=== PATIENT | female | born 1980 | race Caucasian/White ===

== ENCOUNTER 2017-08-24 10:35 | Emergency (ER) | payer BC, SELFPAY | END 2017-08-24 11:59 | disposition home or self-care (01) | LOC: ERS 10:35 | DX: J10.1 Influenza due to other identified influenza virus with other respiratory manifestations (principal); I10 Essential (primary) hypertension; G43.909 Migraine, unspecified, not intractable, without status migrainosus; F17.210 Nicotine dependence, cigarettes, uncomplicated | CPT/HCPCS: 87081; 87430; 99406 ==

== ENCOUNTER 2018-02-09 02:59 | Emergency (ER) | payer BC, OTHER, SELFPAY ==
[2018-02-09 03:40] LABS: Bilirubin Negative (Negative); Blood, Urine Negative (Negative); Clarity CLOUDY (Clear); Glucose, Urine (Dipstick) Negative (Negative); Leukocyte Negative (Negative); Nitrite Negative (Negative); Protein, Urine (Dipstick) Negative (Neg-Trace); Specific Gravity, Urine 1.015 (1.002-1.036); Urobilinogen 0.2 mg/dL (0.2-1.0)
[2018-02-09 03:41] LABS: Pregnancy Test - Urine (BHCG) Negative (Negative); Pregu Control Background? CLEAR/WHITE (CLR/WHITE); Pregu Control Bar Appear? YES (CONTROL BAR)
[2018-02-09 03:42] LABS: Specific Gravity 1.015 (1.002-1.036)
[2018-02-09 05:06] LABS: Syphilis Antibody Nonreactive (Nonreactive); Syphilis Antibody Index 0.05 S/CO (<1.00 Non-Reactive)
[2018-02-09 05:18] LABS: HIV (1/2) Antibody/Antigen Non-Reactive (NonReactive); HIV 1/2 INDEX 0.07 S/CO (<1.00); Hep C IgG Ab Non-Reactive (NonReactive)
[2018-02-11 19:56] LABS: Chlamydia by PCR Not Detected (NotDetected); GC by PCR Not Detected (NotDetected)
== END 2018-02-09 04:26 | disposition home or self-care (01) ==
LOC: ERS 02:59
DX: N76.4 Abscess of vulva (principal); I10 Essential (primary) hypertension; G43.909 Migraine, unspecified, not intractable, without status migrainosus; F43.10 Post-traumatic stress disorder, unspecified; F17.210 Nicotine dependence, cigarettes, uncomplicated
CPT/HCPCS: 36415; 81003; 81025; 86780; 86803; 87389; 87480; 87491; 87510; 87529; 87591; 87660; 99283

== ENCOUNTER 2019-03-07 19:39 | Emergency (ER) | payer BC, SELFPAY ==
[2019-03-07] MEDS ORDERED: predniSONE 20 MG TAB ONE (20:22)
[2019-03-07] MEDS ORDERED: Albuterol Sulfate 2.5 mg/3 ml Neb ONE ×2 (20:28→21:09)
--- NOTE | 2019-03-07 20:48 | RAD ---
TWO VIEW CHEST: 03/07/19 HISTORY: Pneumonia, cough. Lungs are clear. No infiltrate identified. Heart and mediastinum unremarkable. IMPRESSION: No acute process. POS: [facility]
== END 2019-03-07 21:30 | disposition home or self-care (01) ==
LOC: ERS 19:39
DX: J20.9 Acute bronchitis, unspecified (principal); I10 Essential (primary) hypertension; G43.909 Migraine, unspecified, not intractable, without status migrainosus; F17.210 Nicotine dependence, cigarettes, uncomplicated; F41.9 Anxiety disorder, unspecified; Z79.899 Other long term (current) drug therapy
CPT/HCPCS: 71046; J7512; J7611; J7620

== ENCOUNTER 2019-04-22 20:17 | Emergency (ER) | payer BC, OTHER ==
[2019-04-22] MEDS ORDERED: Lorazepam 2 MG/ML VIAL ONE (20:28)
[2019-04-22] MEDS ORDERED: Nitroglycerin 0.4 MG TAB 1 EACH ONE (20:39)
--- NOTE | 2019-04-22 20:50 | RAD ---
EXAM: Portable chest PROVIDED CLINICAL HISTORY: Chest pain COMPARISON: 03/07/2019 FINDINGS: Cardiac and mediastinal silhouette is within normal limits. No focal consolidation, pleural fluid or pneumothorax evident. IMPRESSION: No evidence for an acute cardiopulmonary process.
[2019-04-22 21:15] LABS: #Basophils 0.1 thou/uL (0.0-0.2); #Eosinphils 0.1 thou/uL (0.0-0.7); #Lymphocytes 3.4 thou/uL (1.20-3.40); #Monocytes 0.7 thou/uL (0.11-0.59); #Neutrophils 9.8 thou/uL (1.40-6.50); %Eosinophils 0.8 % (0.0-10.0); %Lymphocytes 23.9 % (21.0-51.0); %Monocytes 4.9 % (0.0-10.0); %Neutrophils 69.3 % (42.0-75.0); Mean Corpuscular HGB CONC 31.9 g/dL (32.0-36.0); Mean Corpuscular Hemoglobin 31.4 pg (27.0-31.0); Mean Corpuscular Volume 98.4 fL (78.0-98.0); Mean Platelet Volume 8.6 fL (7.4-10.4); Platelet Count 254 thou/uL (130-400); RBC Distribution Width 16.2 % (11.5-14.5); Red Blood Cell (RBC) Count 3.82 mill/uL (4.20-5.40); White Blood Cell (WBC) Count 14.1 thou/uL (4.8-10.8)
[2019-04-22 21:31] LABS: ALT (SGPT) 13 U/L (8-55); AST (SGOT) 18 U/L (5-34); Albumin 3.9 g/dL (3.5-5.0); Alkaline Phosphatase 49 U/L (40-150); Anion Gap 14 mmol/L (10-20); BUN (Urea Nitrogen) 16 mg/dL (7.0-18.7); Bilirubin, Total 0.2 mg/dL (0.2-1.2); CK (CPK) 215 U/L (29-168); Calc. Creatinine Clearance 0 mL/min (70-130); Calcium 8.9 mg/dL (7.8-10.44); Carbon Dioxide 22 mmol/L (22-29); Chloride 105 mmol/L (98-107); Estimated GFR-MDRD 83; Globulin 2.2 g/dL (2.4-3.5); Glucose 115 mg/dL (70-105); Lipase 24 U/L (8-78); Potassium 3.2 mmol/L (3.5-5.1); Protein, Total 6.1 g/dL (6.0-8.3); Sodium 138 mmol/L (136-145)
== END 2019-04-22 23:13 | disposition home or self-care (01) ==
LOC: ERS 20:17
DX: R07.9 Chest pain, unspecified (principal); F41.9 Anxiety disorder, unspecified; F31.9 Bipolar disorder, unspecified; F43.10 Post-traumatic stress disorder, unspecified; F90.9 Attention-deficit hyperactivity disorder, unspecified type; F17.210 Nicotine dependence, cigarettes, uncomplicated; Z79.51 Long term (current) use of inhaled steroids; Z79.899 Other long term (current) drug therapy
CPT/HCPCS: 36415; 71045; 80053; 82550; 83690; 83880; 84484; 85025; 85379; 93005; 94760; 96374; J2060

== ENCOUNTER 2019-09-09 14:05 | Outpatient (CLI) | payer BC ==
[2019-09-09 17:11] LABS: Hemoglobin 10.9 g/dL (12.0-16.0); Mean Corpuscular HGB CONC 31.6 g/dL (32.0-36.0); Mean Corpuscular Hemoglobin 29.3 pg (27.0-31.0); Mean Corpuscular Volume 92.7 fL (78.0-98.0); Mean Platelet Volume 8.8 fL (7.4-10.4); Platelet Count 292 thou/uL (130-400); RBC Distribution Width 14.7 % (11.5-14.5); Red Blood Cell (RBC) Count 3.73 mill/uL (4.20-5.40); White Blood Cell (WBC) Count 13.6 thou/uL (4.8-10.8)
[2019-09-09 17:24] LABS: BHCG - Serum Negative (NEGATIVE); Pregs Control Background? CLEAR/WHITE (CLR/WHITE); Pregs Control Bar Appear? YES (CONTROL BAR)
[2019-09-09 17:41] LABS: Anion Gap 8 mmol/L (10-20); BUN (Urea Nitrogen) 16 mg/dL (7.0-18.7); Calc. Creatinine Clearance 0 mL/min (70-130); Calcium 8.9 mg/dL (7.8-10.44); Carbon Dioxide 28 mmol/L (22-29); Chloride 107 mmol/L (98-107); Estimated GFR-MDRD 79; Glucose 99 mg/dL (70-105); Potassium 3.9 mmol/L (3.5-5.1); Sodium 139 mmol/L (136-145)
== END 2019-09-09 14:06 | disposition home or self-care (01) ==
LOC: LABBT 14:05
PROVIDERS: ATTEND Obstetrics & Gynecology
DX: Z01.812 Encounter for preprocedural laboratory examination (principal); D25.9 Leiomyoma of uterus, unspecified
CPT/HCPCS: 80048; 84703; 85027; 86850; 86900; 86901; 93005; 93010

== ENCOUNTER 2019-09-10 10:42 | Day surgery (SDC) | payer BC ==
--- NOTE | 2019-09-09 13:29 | HP ---
DATE OF SURGERY: She is scheduled for surgery on 09/10/2019. HISTORY OF PRESENT ILLNESS: Ms. Landeros is a 39-year-old white female, G2, P2, prior section x1, who has been having increasingly heavy menstrual bleeding. She describes her bleeding with large clots and saturation of a tampon within an hour. She has had progressive increase in the bleeding over the past year. She has tried nonsteroidals for this with no improvement. She is a half pack per day smoker and therefore, oral contraceptives are not recommended in her therapy. Due to the heavy bleeding, she has underwent a transvaginal ultrasound, which showed her uterus to measure 9.9 x 5.2 cm with two uterine fibroids located in the submucosal region. They measured 2.5 x 2.4 cm x2. They do noted to encroach the cavity of the uterus. PAST MEDICAL HISTORY: Significant for bipolar and ADHD. She is also hypertensive and also has anxiety and post-traumatic stress disorder. PAST SURGICAL HISTORY: As noted section. SOCIAL HISTORY: Half pack per day smoker. No illicit drug use or excessive alcohol intake. CURRENT MEDICATION: 1. Bisoprolol 10 mg - hydrochlorothiazide 6.25 mg daily. 2. Citalopram 20 mg tablet daily. 3. Lamotrigine 100 mg tablet b.i.d. 4. Vyvanse 60 mg tablet daily. FAMILY HISTORY: Noncontributory. 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 She has a control method is tubal ligation. PHYSICAL EXAMINATION: VITAL SIGNS: On exam, her height is 5 feet, weight 191 pounds with a BMI of 37.3. Blood pressure 112/82, pulse 62 and regular, respiratory rate 18, and O2 saturation on room air is 97%. HEENT: Within normal limits. NECK: Supple. No thyromegaly. CHEST: Clear to auscultation. HEART: Regular rate and rhythm. S1 and S2 heart sounds. No murmurs, rubs, or gallops. ABDOMEN: Soft and nontender. Well-healed Pfannenstiel incisional scar with no evidence of hernias appreciated. No palpable masses. PELVIC: External genitalia, there was no lesions. The vagina had no abnormal findings. There was no mass or tenderness in the vaginal area. No excessive cystocele or rectocele noted. Cervix had no visual lesions. It is normal in appearance. No cervical motion tenderness. The uterus was enlarged approximately a 10-week size. There were no adnexal masses or tenderness. Endometrial biopsy was performed and her uterus sounded to 9 cm. The endometrial biopsy pathology showed benign findings. ASSESSMENT AND PLAN: This is a 39-year-old white female, G2, P2, prior section x1, with tubal ligation with menorrhagia. She has noted two submucosal fibroids of the uterus noted on transvaginal ultrasound. She is not an oral contraceptive candidate due to greater than age 34 and smoking history. She desires definitive surgical therapy. She is scheduled for a robotic total laparoscopic hysterectomy with bilateral salpingectomy and this is set for 09/10/2019. Risks and benefits of procedure have been discussed in detail and she is set for surgery. Job ID: [id number]
[2019-09-09 16:08] VITALS: BMI 39.0
[2019-09-10] MEDS ORDERED: HYDROmorphone 0.5 MG/0.5 ML SYRINGE ONE (11:51)
[2019-09-10] MEDS ORDERED: Fentanyl 100 MCG/2 ML VIAL ONE ×4 (11:51→16:20)
[2019-09-10] MEDS ORDERED: Lidocaine 1% w/Epinephrine 1:100K 20 ML VIAL ONE (11:52)
[2019-09-10] MEDS ORDERED: Bupivacaine PF 0.5% 30 ML VIAL ONE (11:52)
[2019-09-10] MEDS ORDERED: Famotidine 20 MG TAB ONE (12:18)
[2019-09-10] MEDS ORDERED: Gabapentin 300 MG CAP ONE (12:18)
[2019-09-10] MEDS ORDERED: Famotidine/PF 20 mg/2ml Vial ONE (12:19)
[2019-09-10] MEDS ORDERED: Albuterol Sulfate HFA (OR ONLY) ONE (13:34)
[2019-09-10] MEDS ORDERED: Zolpidem Tartrate 5 MG TAB PO PRN (14:31)
[2019-09-10] MEDS ORDERED: traMADol HCl 50 MG TAB PO PRN ×2 (14:31)
[2019-09-10] MEDS ORDERED: Morphine 4 MG/ML VIAL SLOW IVP PRN ×2 (14:31→17:27)
[2019-09-10] MEDS ORDERED: diphenhydrAMINE 25 MG CAP PO PRN (14:31)
[2019-09-10] MEDS ORDERED: Ondansetron PF 4 MG/2 ML Vial IVP PRN (14:31)
[2019-09-10] MEDS ORDERED: Promethazine HCl 25 MG/ML VIAL IM PRN (14:31)
[2019-09-10] MEDS ORDERED: Simethicone Chewable 80 MG TAB PO PRN (14:31)
[2019-09-10] MEDS ORDERED: Bisacodyl 10 MG SUPP PR PRN (14:31)
[2019-09-10] MEDS ORDERED: Promethazine HCl 25 MG/ML VIAL ONE (14:54)
[2019-09-10] MEDS ORDERED: Rocuronium Bromide 10 MG/ML (10ML VIAL) ONE (14:55)
[2019-09-10] MEDS ORDERED: Lidocaine 1% PF 5 ML VIAL ONE (14:55)
[2019-09-10] MEDS ORDERED: Ondansetron PF 4 MG/2 ML Vial ONE (14:55)
[2019-09-10] MEDS ORDERED: Dexamethasone 20 MG/5 ML VIAL ONE (14:55)
[2019-09-10] MEDS ORDERED: Glycopyrrolate 0.2 MG/ML 5 ML SYRINGE ONE (14:55)
[2019-09-10] MEDS ORDERED: PROPOFOL 200 MG/20 ML VIAL ONE (14:55)
[2019-09-10] MEDS ORDERED: Ondansetron HCl/PF 4 MG/2 ML Vial IVP PRN (15:16)
[2019-09-10] MEDS ORDERED: Promethazine HCl 25 MG/ML VIAL SLOW IVP PRN (15:16)
[2019-09-10] MEDS ORDERED: Ketorolac Tromethamine 30 MG/ML VIAL ONE (15:52)
[2019-09-10] MEDS ORDERED: Ketorolac Tromethamine 30 MG/ML VIAL IVP SCH ×2 (18:00→22:00)
[2019-09-10] MEDS: Sodium Chloride 0.9% 1,000 ML IV SCH ×2 (18:05→18:38)
[2019-09-10] MEDS: Acetaminophen 1,000 MG in Premix Bag 1 BAG IVPB SCH ×2 (18:40→23:58)
[2019-09-10] MEDS ORDERED: lamoTRIgine 100 MG TAB PO SCH (21:00)
--- NOTE | 2019-09-10 21:41 | OP ---
DATE OF PROCEDURE: 09/10/2019 PREOPERATIVE DIAGNOSES: 1. A 39-year-old white female, history of prior section with menorrhagia. 2. Noted uterine submucosal fibroids. POSTOPERATIVE DIAGNOSES: 1. A 39-year-old white female, history of prior section with menorrhagia. 2. Noted uterine submucosal fibroids. PROCEDURE PERFORMED: Robotic TLH with bilateral salpingectomy. ICT EDUCATOR SURGEON: Mayra Waldron PA-C. ANESTHESIA: General endotracheal. ESTIMATED BLOOD LOSS: 25 mL. COMPLICATIONS: None. ANTIBIOTICS: 2 g Ancef, on-call to OR. PATHOLOGY: Uterus, cervix and bilateral fallopian tube segments. FINDINGS: 1. Uterus was 8 to 10 week size, globularly enlarged. 2. Normal-appearing bilateral ovaries and fallopian tube segments. 3. Bladder was watertight to fluid distention greater than 300 mL intermittently throughout the case and postprocedure. 4. Bilateral ureteral peristalsis visualized postprocedure. DISPOSITION: Recovery room stable. DESCRIPTION OF PROCEDURE: The patient previously received informed consent in regard to surgery. Taken to the operating room, where she received a general endotracheal anesthetic agent without complications. She was placed in dorsal lithotomy position with Dragan stirrups and prepped and draped in usual sterile fashion. A side-arm speculum was placed in vagina after Ibarra catheter was placed. The cervix grasped with a single-tooth tenaculum. Uterus sounded to size 10 cm. A size 10 cm NUPUR uterine manipulator with a 4.0 cm cervical cup was placed in usual fashion. Speculum and tenaculum were then removed. Attention was then turned to the abdomen, where perspective trocar sites were infiltrated with 0.5% Marcaine with epinephrine. A 12 mm supraumbilical incision was made and Veress needle was entered into the peritoneal cavity. The patient's pressure was noted to be 5 mm. Abdomen was insufflated with the patient's pressure of 15 approximately 4.5 L of carbon dioxide gas. Veress needle was then removed. A size 12 mm trocar was placed and then the robotic trocar. The laparoscope was introduced through trocar sleeve. Proper entry was confirmed. Additional bilateral lower quadrant 8 mm trocars were placed under laparoscopic guidance along with the right upper quadrant 11 mm port. The patient was placed in Trendelenburg position. Robot was docked in usual fashion. I then proceeded to break scrub and then carry out the surgery from the operative console while my assistants remained at the bedside. My assistants elevated the uterus from the pelvis and the left fallopian tube was grasped by my assistant store manager. The mesosalpinx, the remaining fallopian tube segments were coagulated and transected with Bovie cautery and removed out through the right upper quadrant assistant store manager port. The left uterine ovarian ligament was coagulated and transected and then serial coagulation of broad ligament hugging close to uterine specimen was carried down to the left round ligament was reached. It was coagulated and transected. The anterior leaf of the broad ligament was entered and the vesicouterine peritoneum was incised along with some filmy adhesions from the previous section. We distended the bladder to delineate its position and aid for dissection, correct planes, dissecting the bladder atraumatically past the cervical vaginal junction. The uterine vessels again were skeletonized on the left side and the uterine arteries. They were coagulated in the internal cervical os region. This was carried down in likewise fashion with the right fallopian tube being excised. The right uterine ovarian ligament coagulated and transected. Serial coagulation of broad ligament again hugging close to uterus to the right round ligament was reached, again it being coagulated and transected. The anterior leaf of the broad ligament again was entered dissecting the vesicouterine peritoneum in a layering fashion and then dealing any bladder from the previous section scars, dissecting the bladder atraumatically past the cervical vaginal angle. The uterine vessels were skeletonized at the internal cervical os and coagulated. Once we felt the bladder had been safely dissected past the cervical vaginal angle, then we proceeded to create the anterior colpotomy starting from 12 o'clock to 3 o'clock and 12 to 9 o'clock position. It was completed posteriorly from 6 to 3 in 6 to 9 o'clock positions. The specimen was then brought into the vaginal vault by my assistance. My monopolar scissor was exchanged with a needle semi driver. The vaginal cuff was coagulated of remaining oozing, bleeding with Bovie cautery. Then, a Stratafix suture was brought into the field by my assistant store manager and I closed the vaginal cuff in full-thickness closure from right angle to the left angle back toward the midline. The excess suture and needle were removed through right upper quadrant port. The pelvis irrigated and suctioned. All pedicle sites were noted to be hemostatic. Bilateral ureteral peristalsis was visualized and the course of the ureter was below these operative sites. Vaginal vault was inspected by my assistant store manager with the sponge stick and it was confirmed to be dry vaginally. The robot was undocked, carbon dioxide gas was released from the abdomen and the trocars and sleeves were removed. I then closed the [id number] stitch of 0 Vicryl in the supraumbilical fascial defect. The remainder of trocar sites were closed with 4-0 subcuticular and Dermabond. The patient was awakened from anesthesia and transferred to recovery room in stable condition. Job ID: [id number]
[2019-09-11 00:30] VITALS: BP 127/62; TEMP 98.3
[2019-09-11] MEDS ORDERED: Ibuprofen 800 MG TAB ONE (05:24)
[2019-09-11] MEDS ORDERED: Ibuprofen 800 MG TAB PO SCH (06:00)
[2019-09-11] MEDS ORDERED: Citalopram 20 MG TAB PO SCH (09:00)
[2019-09-11] MEDS ORDERED: Nicotine 21 MG PATCH TD SCH (09:00)
[2019-09-11] MEDS ORDERED: Bisoprolol Fumarate/HCTZ 10 mg/6.25 mg Tablet PO SCH (09:00)
[2019-09-11] MEDS ORDERED: Lisdexamfetamine Dimesylate [Vyvanse] 60 MG PO SCH (09:00)
[2019-09-11 16:03] LABS: Hemoglobin 10.5 g/dL (12.0-16.0); Mean Corpuscular HGB CONC 31.9 g/dL (32.0-36.0); Mean Corpuscular Hemoglobin 29.5 pg (27.0-31.0); Mean Corpuscular Volume 92.4 fL (78.0-98.0); Mean Platelet Volume 9.1 fL (7.4-10.4); Platelet Count 312 thou/uL (130-400); RBC Distribution Width 14.7 % (11.5-14.5); Red Blood Cell (RBC) Count 3.56 mill/uL (4.20-5.40)
--- NOTE | 2019-09-12 05:45 | DIS ---
DATE OF ADMISSION: 09/10/2019 DATE OF DISCHARGE: 09/11/2019 DIAGNOSES: 1. Symptomatic uterine fibroids. 2. Menorrhagia and pelvic pain. PROCEDURES PERFORMED: Robotic total laparoscopic hysterectomy with bilateral salpingectomy. COMORBID DIAGNOSES: 1. Chronic hypertension. 2. Attention-deficit hyperactivity disorder. 3. Bipolar disorder. SUMMARY OF HOSPITAL COURSE: Ms. Landeros is a 39-year-old white female with prior section, had increasingly heavy menstrual bleeding and findings of submucosal uterine fibroids. She underwent definitive therapy, robotic TLH with bilateral salpingectomy on 09/10/2019. Postoperatively, the patient has done well. She is ambulating, voiding, and tolerating regular diet on the morning of postop day #1. Pain control was adequate with oral [place] and ibuprofen. Her vital signs remained stable throughout. She was discharged on postop day #1. Pathology is pending at the time of this dictation. She will resume her maintenance medications for hypertension, ADHD, bipolar disorder and was also given a prescription for Lancaster 5 mg/325 mg q.4 to 6 hours p.r.n. pain and [id number] ibuprofen as directed. She has a followup in 2 and 6 weeks. Job ID: [id number]
[2019-09-12] MEDS ORDERED: Ibuprofen 800 MG TAB PO SCH (06:00)
== END 2019-09-11 10:00 | disposition home or self-care (01) ==
LOC: SDC 10:42 → 3SE 10:42 → SDC 09-11 10:00
PROVIDERS: ATTEND Obstetrics & Gynecology
PROC: 0UT94ZZ Resection of Uterus, Percutaneous Endoscopic Approach (ICD-10-PCS; principal; 2019-09-10)
PROC: 0UT74ZZ Resection of Bilateral Fallopian Tubes, Percutaneous Endoscopic Approach (ICD-10-PCS; 2019-09-11)
DX: D25.0 Submucous leiomyoma of uterus (principal); I10 Essential (primary) hypertension; F90.9 Attention-deficit hyperactivity disorder, unspecified type; F41.9 Anxiety disorder, unspecified; F43.10 Post-traumatic stress disorder, unspecified; F31.9 Bipolar disorder, unspecified; F17.210 Nicotine dependence, cigarettes, uncomplicated; Z79.899 Other long term (current) drug therapy; Z88.2 Allergy status to sulfonamides
CPT/HCPCS: 85027; 88307; 94640; J0131; J0690; J1100; J1170; J1885; J2001; J2270; J2405; J2550; J2704; J3010; J7620; S0020; S0028

== ENCOUNTER 2020-09-30 14:00 | Emergency (ER) | payer BC, SELFPAY | END 2020-09-30 15:31 | disposition home or self-care (01) | LOC: ERS 14:00 | DX: R11.0 Nausea (principal); Z20.828 Contact with and (suspected) exposure to other viral communicable diseases; G43.909 Migraine, unspecified, not intractable, without status migrainosus; I10 Essential (primary) hypertension; F17.210 Nicotine dependence, cigarettes, uncomplicated | CPT/HCPCS: 99281 ==

== ENCOUNTER 2020-10-28 13:40 | Emergency (ER) | payer BC, SELFPAY ==
[2020-10-29 17:49] LABS: SARS-CoV-2 PCR by NAA Not Detected (NotDetected)
== END 2020-10-28 14:30 | disposition home or self-care (01) ==
LOC: ERS 13:40
DX: R05 Cough (principal); Z20.822 Contact with and (suspected) exposure to COVID-19; I10 Essential (primary) hypertension; G43.909 Migraine, unspecified, not intractable, without status migrainosus; F17.210 Nicotine dependence, cigarettes, uncomplicated
CPT/HCPCS: 87635; 99283; U0003; U0005

== ENCOUNTER 2021-10-14 14:08 | Emergency (ER) | payer BC ==
[2021-10-14] MEDS ORDERED: predniSONE 20 MG TAB ONE (15:39)
== END 2021-10-14 15:44 | disposition home or self-care (01) ==
LOC: ERS 14:08
DX: U07.1 COVID-19 (principal); I10 Essential (primary) hypertension; G43.909 Migraine, unspecified, not intractable, without status migrainosus; F17.210 Nicotine dependence, cigarettes, uncomplicated
CPT/HCPCS: 99283; J7512

== ENCOUNTER 2022-03-17 12:36 | Emergency (ER) | payer BC ==
[2022-03-17] MEDS ORDERED: Acetaminophen 500 MG TAB ONE (13:46)
[2022-03-17] MEDS ORDERED: Metoclopramide HCl 10 MG/2 ML VIAL ONE (13:46)
[2022-03-17] MEDS ORDERED: diphenhydrAMINE 50 MG/ML VIAL ONE (13:46)
[2022-03-17] MEDS ORDERED: Ketorolac Tromethamine 30 MG/ML VIAL ONE (13:46)
== END 2022-03-17 15:42 | disposition home or self-care (01) ==
LOC: ERS 12:36
DX: R51.9 Headache, unspecified (principal); I10 Essential (primary) hypertension; F17.210 Nicotine dependence, cigarettes, uncomplicated
CPT/HCPCS: 96365; 96375; J1200; J1885; J2765

== ENCOUNTER 2022-05-11 07:23 | Emergency (ER) | payer BC ==
[2022-05-11] MEDS ORDERED: Ondansetron ODT 4 MG TAB ONE ×2 (09:43→09:45)
== END 2022-05-11 10:50 | disposition home or self-care (01) ==
LOC: ERS 07:23
DX: K52.9 Noninfective gastroenteritis and colitis, unspecified (principal); I10 Essential (primary) hypertension
CPT/HCPCS: 99283; Q0162